=== PATIENT | female | born 1970 | race Caucasian/White ===

== ENCOUNTER → 2018-12-03 | Outpatient (REF) | payer OTHER ==
[2018-12-03 17:16] LABS: ALBUMIN 3.9 GM/DL (3.2-5.2); ALT/SGPT 17 U/L (12-78); BILIRUBIN,TOTAL 0.4 MG/DL (0.2-1.0); BLOOD UREA NITROGEN 12 MG/DL (7-18); CARBON DIOXIDE LEVEL 28 MEQ/L (21-32); CHLORIDE LEVEL 104 MEQ/L (98-107); CHOLESTEROL LEVEL 200 MG/DL (<200); CHOLESTEROL RISK RATIO 3.225 (<5); CREATININE FOR GFR 0.82 MG/DL (0.55-1.30); GLOMERULAR FILTRATION RATE > 60.0 (>51); GLUCOSE, FASTING 94 MG/DL (70-100); HDL CHOLESTEROL 62 MG/DL (>40); LDL CHOLESTEROL 118 MG/DL (<100); NON-HDL-C 138 MG/DL; POTASSIUM SERUM 4.3 MEQ/L (3.5-5.1); SODIUM LEVEL 139 MEQ/L (136-145); TRIGLYCERIDES LEVEL 102 MG/DL (<150)
[2018-12-03 17:23] LABS: BASO % 0.8 % (0.0-1.0); EOS # 0.2 10^3/uL (0.0-0.50); EOS % 3.3 % (0.0-3.0); HEMATOCRIT 39.9 % (36.0-47.0); HEMOGLOBIN 13.6 g/dl (12.0-15.5); LYMPH # 1.8 10^3/uL (1.5-4.5); LYMPH % 35.7 % (24.0-44.0); MEAN CORPUSCULAR HEMOGLOBIN 30.5 pg (27.0-33.0); MEAN CORPUSCULAR HGB CONC 34.1 g/dl (32.0-36.5); MEAN CORPUSCULAR VOLUME 89.5 fl (80.0-96.0); MONO # 0.3 10^3/uL (0.0-0.8); MONO % 6.6 % (0.0-5.0); NEUTROPHILS # 2.8 10^3/uL (1.8-7.7); NEUTROPHILS % 53.4 % (36.0-66.0); PLATELET COUNT, AUTOMATED 351 10^3/uL (150-450); RED BLOOD COUNT 4.46 10^6/uL (4.00-5.40); WHITE BLOOD COUNT 5.2 10^3/uL (4.0-10.0)
== END ==
LOC: M SFHCCAPE 07:42
PROVIDERS: ATTEND Physician Assistant
DX: N95.0 Postmenopausal bleeding (principal); Z13.6 Encounter for screening for cardiovascular disorders

== ENCOUNTER → 2018-12-10 | Outpatient (REF) | payer OTHER ==
[2018-12-12 14:09] LABS: HPV HYBRID CAPTURE II Negative (Negative)
== END ==
LOC: M SFHCWAGY 14:04
PROVIDERS: ATTEND Nurse Practitioner Family
DX: Z12.4 Encounter for screening for malignant neoplasm of cervix (principal); Z11.51 Encounter for screening for human papillomavirus (HPV)
CPT/HCPCS: 87624; G0123

== ENCOUNTER → 2018-12-31 | Outpatient (CLI) | payer OTHER ==
--- NOTE | 2018-12-31 12:52 | REPMRS ---
Patient History The patient states she had a clinical breast exam in 11/2018. Patient is nulliparous. No known family history of cancer. Implants in both breasts, March 25, 2007. Digital Woman Screen Mammo: December 31, 2018 - Exam #: [id number] Bilateral CC and MLO view(s) were taken. Technologist: Radha Pittman, Technologist No prior studies available for comparison. FINDINGS: The breast tissue is heterogeneously dense. This may lower the sensitivity of mammography. The visualized implant margins are smooth. Breast parenchymal density pattern is essentially symmetric. No dominant mass, clustered microcalcification, or archetectural distortion is evident on either side. 3-D tomosynthesis shows no additional findings. Assessment: BI-RADS/ACR category 2 mammogram. Benign Findings. Recommendation Routine screening mammogram of both breasts in 1 year (for women over age 40). Electronically Signed By: Mateo Sexton MD 12/31/18 [id number]
--- NOTE | 2018-12-31 19:28 | REP ---
Clinical: Postmenopausal bleeding. Technique: Transabdominal pelvic ultrasound followed by transvaginal examination for better evaluation of the endometrium and adnexa with color Doppler evaluation of the ovaries. Findings: Bladder measures 9.1 x 10.1 x 7.0 cm and includes 1.6 x 1.3 x 1.1 cm hyperechoic mass along the right posterolateral bladder wall. Anteverted uterus measures 7.8 x 3.5 x 4.7 cm. Endometrial complex measures 2.9 mm thickness. Oval mass in the lower uterine segment suggesting endometrial polyp measuring 10 x 15 x 10 mm. Bilateral ovaries are normal in appearance. Right ovary measures 2.5 x 1.0 x 2.2 cm; left ovary measures 1.7 x 1.2 x 0.9 cm. No pelvic fluid or adnexal mass lesion. Impression: 1. 10 x 15 x 10 mm echogenic focus suggesting endometrial polyp. 2. 1.6 cm right posterolateral bladder wall mass warrants cystoscopy evaluation.
== END ==
LOC: M WHC 08:31
PROVIDERS: ATTEND Nurse Practitioner Family
DX: Z12.31 Encounter for screening mammogram for malignant neoplasm of breast (principal); N95.0 Postmenopausal bleeding; Z98.82 Breast implant status

== ENCOUNTER 2019-02-25 09:28 | Day surgery (SDC) | payer OTHER ==
[~2019-02-25] VITALS: Ht 177.8 cm; Wt 78.9 kg
[~2019-02-25 09:28] MED LIST: LR 1,000 ML IV ONE
[2019-02-25] MEDS ORDERED: LIDOCAINE 2% INJ 100 MG/5 ML SDV (FOR ANES.) As Ordered ONE (10:41)
[2019-02-25] MEDS ORDERED: ONDANSETRON 4MG/2ML VIAL (J2405) As Ordered ONE (10:41)
[2019-02-25] MEDS ORDERED: dexameTHASONE 4 MG/ML 1ML VIAL (J1100) As Ordered ONE (10:41)
[2019-02-25] MEDS ORDERED: PROPOFOL 200 MG/20 ML VIAL As Ordered ONE (10:41)
[2019-02-25] MEDS ORDERED: fentaNYL 100 MCG/2 ML INJECTION (J3010) As Ordered ONE (10:42)
[2019-02-25] MEDS ORDERED: MIDAZOLAM INJ 2 MG/2 ML VIAL (J2250) As Ordered ONE (10:42)
[2019-02-25] MEDS ORDERED: fentaNYL 100 MCG/2 ML INJECTION (J3010) IV PRN (14:15)
[2019-02-25] MEDS ORDERED: ONDANSETRON 4MG/2ML VIAL (J2405) IV PRN (14:15)
[2019-02-25] MEDS ORDERED: IBUPROFEN 600 MG TAB PO PRN (14:15)
[2019-02-25] MEDS ORDERED: LR 1,000 ML IV SCH ×2 (14:15)
--- NOTE | 2019-02-25 14:43 | RO ---
DATE OF PROCEDURE: 02/25/2019 PREPROCEDURE DIAGNOSIS: Postmenopausal bleeding with abnormal sonogram showing suggestion of lesions within the bladder and uterus. POSTPROCEDURE DIAGNOSIS: High benign appearing endometrial polyp and some suspicion of interstitial cystitis on cystourethroscopy but no bladder lesion. PROCEDURE: Hysteroscopy, dilation and curettage MyoSure and cystourethroscopy. SURGEON: Dr. Violeta Palacios. ASSURANCE AUDITOR: ANESTHESIA: Laryngeal mask anesthesia (LMA). DESCRIPTION OF PROCEDURE: Mabel was brought to the operating room where sufficient LMA anesthesia was induced and she was prepped, draped, and positioned in the usual sterile fashion. The cervix was grasped with a single tooth tenaculum. The uterus sounded to 7 and the cervix sequentially dilated to allow introduction of the hysteroscope, which was then used to visualize the endometrial cavity. There was a tiny polyp, which is photographed as well. It is a fairly small endometrial cavity. There was no hypervascular growth. There was no real excessive glandular growth. The MyoSure light resector was used to resect the polyp and the endometrium and we did a 360 degree sampling with good resection. We also sampled within the cervix. Also after we had resected the endometrium with MyoSure, we also did a couple of passes with the curet, which confirmed normal uterine cry throughout. As you can see in the pictures, there were no worrisome appearing lesions and there were normal tubal ostia. With the hysteroscopy portion of the case completed, we then turned to the cystoscopy and the 70-degree cystoscope was placed so we could get circumferential evaluation of the bladder. There were one or two focal areas in the bladder that had sort of a lacy hypervascularization consistent with little interstitial cystitis. The patient occasionally has some urgency and symptoms consistent with that but there were no lesions. No abnormalities. Normal jets of urine bilaterally. Normal texture to the wall. There was no area that we can justify biopsying. This was just a normal-appearing bladder. We did take photos. There was a tiny bit of metaplasia over the trigone but again, this is a normal appearance. After the cystoscopy and the hysteroscopy were completed, the procedure was ended. ESTIMATED BLOOD LOSS: Maybe 3 mL. FLUID REPLACEMENT: Crystalloid. COMPLICATION: None. CONDITION AND DISPOSITION: Mabel tolerated the procedure well and was recovering in the recovery room in good condition.
[2019-02-25 16:40] VITALS: BP 145/72
== END 2019-02-25 16:50 | disposition home or self-care (01) ==
LOC: M SDC 09:28
PROVIDERS: ATTEND Obstetrics & Gynecology
DX: N95.0 Postmenopausal bleeding (principal); N84.0 Polyp of corpus uteri; K21.9 Gastro-esophageal reflux disease without esophagitis
CPT/HCPCS: 52000; 58558; 88305; J0690; J1100; J2250; J2405; J3010